=== PATIENT | male | born 1980 | race African-American/Black ===

== ENCOUNTER 2019-01-13 19:32 | Emergency (ER) | payer SELFPAY ==
[~2019-01-13] VITALS: Ht 180.3 cm; Wt 77.1 kg
[2019-01-13 19:35] VITALS: BP 148/88
[2019-01-13] MEDS ORDERED: IV NORMAL SALINE 1000ML BAG 1,000 ML IV ONE (20:00)
--- NOTE | 2019-01-13 20:15 | PHYS DOC ---
Past Medical History Past Medical History: No Pertinent History Past Surgical History Right thumb and index finger partial amputations Alcohol Use: None Drug Use: None Adult General Chief Complaint Chief Complaint: FATIGUE HPI HPI 38-year-old male presents with his brother with report of confusion and "fatigue". Patient reports she has not been sleeping well. Reports he feels like he is dehydrated because he has been donating plasma several times over the last few weeks. Denies trauma. Denies pain. Denies drug or alcohol abuse. Patient does not report history of mental illness. Review of Systems Review of Systems Constitutional: Denies fever or chills Eyes: Denies redness or eye pain HENT: Denies nasal congestion or sore throat Respiratory: Denies cough or shortness of breath Cardiovascular: Denies chest pain or palpitations GI: Denies abdominal pain, nausea, or vomiting; reports episode of diarrhea earlier this week : Denies dysuria or hematuria Musculoskeletal: Denies back pain or joint pain Integument: Denies rash or skin lesions Neurologic: Denies headache or sensory changes; reports intermittent confusion and "fatigue" Complete systems were reviewed and found to be within normal limits, except as documented in this note. Current Medications Current Medications Current Medications Medications (Trade) Dose Ordered Sig/Lila Start Time Stop Time Status Last Admin Dose Admin Sodium Chloride 1,000 ml @ 1,000 mls/hr 1X ONCE 01/13/19 20:00 01/13/19 20:59 UNV Physical Exam Physical Exam Constitutional: Well developed, well nourished, no acute distress, non-toxic appearance HENT: Normocephalic, atraumatic, oropharynx moist Eyes: PERRL, EOMI, conjunctiva normal, no discharge Neck: Normal range of motion, no tenderness, supple, no meningeal signs Cardiovascular: Heart rate normal, regular rhythm Lungs & Thorax: Bilateral breath sounds clear to auscultation, no wheezing Abdomen: Soft, no tenderness Skin: Warm, dry, no erythema, no rash Extremities: No tenderness, ROM intact, no edema, partial amputations to right thumb and index finger Neurologic: Alert and oriented X 3, normal motor function, normal sensory function, no focal deficits noted Psychologic: Affect flat, tangential thoughts Current Patient Data Vital Signs Vital Signs Date Time Temp Pulse Resp B/P (MAP) Pulse Ox O2 Delivery O2 Flow Rate FiO2 01/13/19 19:35 97.9 103 18 148/88 (108) 99 Room Air 97.9 EKG EKG [] Radiology/Procedures Radiology/Procedures [] Course & Med Decision Making Course & Med Decision Making Patient presents with history of intermittent confusion and "fatigue". Patient reports he thinks he is "dehydrated". No focal deficit noted. Patient appears to suffer from possible schizophrenia. Denies history. Denies drug or alcohol abuse. Labs ordered and IVF hydration ordered. CT head also ordered. Patient took a shower the bathroom attached to his room and reports he now feels better and wants to leave. Patient signed AMA form as he is refusing ordered evaluation and treatment. Discussed findings and plan with patient and family, who acknowledge understanding and agreement. Dragon Disclaimer Dragon Disclaimer This electronic medical record was generated, in whole or in part, using a voice recognition dictation system. Departure Departure Impression: Primary Impression: Intermittent confusion Disposition: 07 AGAINST MEDICAL ADVICE Condition: GUARDED Referrals: NO PCP (PCP) SHERYL HERNANDEZ DO Jan 13, 2019 20:15
== END 2019-01-13 20:23 | disposition left against medical advice (07) ==
LOC: ER 19:32
DX: R41.0 Disorientation, unspecified (principal); R53.83 Other fatigue; E86.0 Dehydration; Z89.011 Acquired absence of right thumb; Z89.021 Acquired absence of right finger(s)
CPT/HCPCS: 99281

== ENCOUNTER 2019-01-14 07:25 | Emergency (ER) | payer SELFPAY ==
[~2019-01-14] VITALS: Ht 180.3 cm; Wt 81.6 kg
[2019-01-14 07:30] VITALS: BP 138/82
--- NOTE | 2019-01-14 07:58 | PHYS DOC ---
Past Medical History Past Medical History: No Pertinent History Additional Past Medical Histor: PSYCH HISTORY Past Surgical History: Other Additional Past Surgical Histo: R HAND - MULT FINGER AMPUTATIONS Smoking: Cigar Alcohol Use: None Drug Use: None Adult General Chief Complaint Chief Complaint: LOWER BACK PAIN OR INJURY [facility] HPI Patient is a 38 year old male who presents with burning of back problem. Patient states" stuck me with with a contaminated needle with HIV yesterday in my back and I want to have a CT scan of my back to see if I have HIV. It was on camera and all over world saw it. I currently have investigation of for the accident and don't want to have any blood test and found to have CT of my back. I have 5% pain in my back." Patient is alert and oriented �3 and denies suicidal and homicidal ideation and hallucination. She was seen in this emergency room last night after he brought in by family members because of confusion but took a shower while he was in emergency room and as stated he feels good and didn't want to have CT or any lab tests and left AMA. Patient states he drove himself to the emergency room. Review of Systems Review of Systems Constitutional: Denies fever or chills [] Eyes: Denies change in visual acuity, redness, or eye pain [] HENT: Denies nasal congestion or sore throat [] Respiratory: Denies cough or shortness of breath [] Cardiovascular: No additional information not addressed in HPI [] GI: Denies abdominal pain, nausea, vomiting, bloody stools or diarrhea [] : Denies dysuria or hematuria [] Musculoskeletal: Reports back pain but denies joint pain [] Integument: Denies rash or skin lesions [] Neurologic: Denies headache, focal weakness or sensory changes [] Endocrine: Denies polyuria or polydipsia [] All other systems were reviewed and found to be within normal limits, except as documented in this note. Allergies Allergies Allergies Coded Allergies Type Severity Reaction Last Updated Verified Fish Containing Products Allergy Unknown 01/13/19 Yes nut - unspecified Allergy Unknown 01/13/19 Yes Physical Exam Physical Exam Constitutional: Well nourished, no distress, non-toxic appearance, poor hygiene. [] HENT: Normocephalic, atraumatic. Eyes: PERRLA, EOMI, conjunctiva normal, no discharge. [] Neck: Normal range of motion, no tenderness, supple, no stridor. [] Cardiovascular:Heart rate regular rhythm, no murmur [] Lungs & Thorax: Bilateral breath sounds clear to auscultation [] Back: No tenderness, no sign of injury, normal range of motion, no CVA tenderness. [] Extremities: No tenderness, no cyanosis, no clubbing, ROM intact, no edema. [] Neurologic: Alert and oriented X 3, no focal deficits noted. [] Psychologic: Affect anxious judgement abnormal, mood normal. [] Current Patient Data Vital Signs Vital Signs Date Time Temp Pulse Resp B/P (MAP) Pulse Ox O2 Delivery O2 Flow Rate FiO2 01/14/19 07:30 98.4 95 20 138/82 (100) 95 Room Air 98.4 EKG EKG [] Radiology/Procedures Radiology/Procedures [facility] [address] [place] [address] IMAGING REPORT Signed PATIENT: ZEINA SAUL CACCOUNT: [id number] : 1980 LOCATION: ER AGE: 38 SEX: M EXAM STATUS: REG ER ORD. PHYSICIAN: KIMBERLEE JOINER MD REASON: pain, pt states being stuck by dirty needle on lower back 01/13/19. PROCEDURE: LUMBAR SPINE 2-3V LUMBAR SPINE 2-3V 01/14/2019 7:48 AM Indication: Stuck by 30 needle in lower back COMPARISON: None available TECHNIQUE: 3 views of the lumbar spine are provided. Findings: There is minimal retrolisthesis of L3 on L4 and L4-L5. Vertebral body heights are maintained. No acute fracture is identified. Disc heights are maintained. No significant endplate degenerative changes are identified. There is no significant facet arthropathy. No significant osseous neuroforaminal stenosis or spinal canal stenosis. Nonobstructive bowel gas pattern. Visualized portions of the sacrum appear intact. No radiopaque foreign density is identified. Impression: No acute fracture. Minimal retrolisthesis of L3 on L4 and L4 and L5. There is no radiopaque foreign density identified. Electronically signed by: Sara Hdz MD (01/14/2019 8:32 AM) [facility] DICTATED and SIGNED BY: SARA HDZ MD DATE: 01/14/1932 Course & Med Decision Making Course & Med Decision Making Pertinent Imaging studies reviewed. (See chart for details) Evaluation of patient in ER showed 38-year-old male patient with poor hygiene and hallucination resented to ER requesting CT scan of his back regarding without injection his back and having HIV. Patient had unremarkable back exam. Patient was alert and oriented but had paranoia and hallucination. Patient denied suicidal and homicidal ideation. Patient was informed about normal x ray of his back and needs to follow-up with a psychiatric. I've spoken with the patient and/or caregivers. I've explained the patient's condition, diagnosis and treatment plan based on information available to me at this time. I've answered the patient's and/or caregivers questions and addressed any concerns. The patient and/or caregivers have a good understanding the patient's diagnosis, condition and treatment plan as can be expected at this point. Vital signs have been stabilized. The patient's condition is stable for discharge from the emergency department. The patient will pursue further outpatient evaluation with her primary care provider or other designated consulting physician as outlined in the discharge instructions. Patient and/or caregivers are agreeable to this plan of care and follow-up instructions have been explained in detail. The patient and/or caregivers have received these instructions in written format and expressed understanding of these discharge instructions. The patient and her caregivers are aware that if any significant change in condition or worsening of symptoms should prompt him to immediately return to this of the closest emergency department. If an emergent department is not readily available I would encourage him to call 911. Sandra Disclaimer Dragon Disclaimer This electronic medical record was generated, in whole or in part, using a voice recognition dictation system. Departure Departure Impression: Primary Impression: Anxiety about health Additional Impressions: Feared condition not demonstrated Hallucination Disposition: 01 HOME, SELF-CARE (at [id number]) Condition: STABLE Referrals: NO PCP (PCP) Patient Instructions: Hallucinations and Delusions Additional Instructions: Follow-up with your primary care physician in 2-3 days or follow-up with psychiatric physician Return to ER if not getting better Take [id number] Tylenol or ibuprofen as needed for back pain Problem Qualifiers KIMBERLEE JOINER MD Jan 14, 2019 07:57
--- NOTE | 2019-01-14 08:35 | RAD ---
LUMBAR SPINE 2-3V 01/14/2019 7:48 AM Indication: Stuck by 30 needle in lower back COMPARISON: None available TECHNIQUE: 3 views of the lumbar spine are provided. Findings: There is minimal retrolisthesis of L3 on L4 and L4-L5. Vertebral body heights are maintained. No acute fracture is identified. Disc heights are maintained. No significant endplate degenerative changes are identified. There is no significant facet arthropathy. No significant osseous neuroforaminal stenosis or spinal canal stenosis. Nonobstructive bowel gas pattern. Visualized portions of the sacrum appear intact. No radiopaque foreign density is identified. Impression: No acute fracture. Minimal retrolisthesis of L3 on L4 and L4 and L5. There is no radiopaque foreign density identified. Electronically signed by: Izzy Hdz MD (01/14/2019 8:32 AM) [facility]
== END 2019-01-14 08:57 | disposition home or self-care (01) ==
LOC: ER 07:25
DX: R44.3 Hallucinations, unspecified (principal); F41.9 Anxiety disorder, unspecified; F17.210 Nicotine dependence, cigarettes, uncomplicated; Z91.018 Allergy to other foods; Z91.013 Allergy to seafood
CPT/HCPCS: 72100; 99284

== ENCOUNTER 2019-06-04 18:23 | Emergency (ER) | payer SELFPAY ==
[~2019-06-04] VITALS: Ht 180.3 cm; Wt 77.2 kg
[2019-06-04 19:51] VITALS: BP 131/82
--- NOTE | 2019-06-04 20:04 | PHYS DOC ---
Past Medical History Past Medical History: Other Additional Past Medical Histor: PSYCH HISTORY (SHERYL MUNIZ APRN) Past Surgical History: Other Additional Past Surgical Histo: R HAND - MULT FINGER AMPUTATIONS (SHERYL MUNIZ APRN) Smoking Status: Current Every Day Smoker Alcohol Use: None Drug Use: None (SHERYL MUNIZ APRN) Attending Signature I have participated in the care of this patient and I have reviewed and agree with all pertinent clinical information above including history, exam, and recommendations. (ANI BAHENA MD) Adult General Chief Complaint Chief Complaint: BACK PAIN OR INJURY [facility] HPI Patient is a 39 year old male who presents with chief complaint of he thinks something is in his back. He states that he was walking along the road this afternoon and feels like something hit him in the back. When asked what hit him in the back he says he is not sure. He denies any additional symptoms. Complete ROS were reviewed and found to be within normal limits, except as documented in the HPI (SHERYL MUNIZ APRN) Allergies Allergies Allergies Coded Allergies Type Severity Reaction Last Updated Verified Fish Containing Products Allergy Unknown 01/13/19 Yes nut - unspecified Allergy Unknown 01/13/19 Yes (ANI BAHENA MD) Physical Exam Physical Exam Constitutional: Well developed, well nourished, no acute distress, non-toxic appearance. [] HENT: Normocephalic, atraumatic, bilateral external ears normal, oropharynx moist, no oral exudates, nose normal. [] Skin: Warm, dry, no erythema, no rash. [] Back: No tenderness, no bruising, or trauma noted, no entry or exit wounds. Extremities: No tenderness, no cyanosis, no clubbing, ROM intact, no edema. [] Neurologic: Alert and oriented X 3, normal motor function, normal sensory function, no focal deficits noted. [] Psychologic: Affect normal, judgement normal, mood normal. [] (SHERYL MUNIZ APRN) Current Patient Data Vital Signs Vital Signs Date Time Temp Pulse Resp B/P (MAP) Pulse Ox O2 Delivery O2 Flow Rate FiO2 06/04/19 19:51 98.0 81 16 131/82 (98) 97 Room Air 98.0 (ANI BAHENA MD) EKG EKG [] (SHERYL MUNIZ APRN) Radiology/Procedures Radiology/Procedures [] (SHERYL MUNIZ APRN) Course & Med Decision Making Course & Med Decision Making Pertinent Labs and Imaging studies reviewed. (See chart for details) The patient presents to the emergency department wanting an X-ray of his back. The patient has no tenderness or bruising. Discussed with patient that there is not indication for x-ray at this time. A medical screening exam was performed on this patient and the patient does not appear to be having a medical emergency. Her symptoms are not of sufficient severity and within reasonable medical probability it is unlikely the absence of immediate medical attention would result in placing the health of the individual (or, with respect to a woman, the health of the woman or her unborn child) in serious jeopardy, serious impairment to bodily functions, or serious dysfunction of any bodily organ or part. If , the patient is not in labor (SHERYL MUNIZ APRN) Dragon Disclaimer Dragon Disclaimer This electronic medical record was generated, in whole or in part, using a voice recognition dictation system. (SHERYL MUNIZ APRN) Departure Departure Impression: Primary Impression: Encounter for medical screening examination Disposition: 07 AGAINST MEDICAL ADVICE (eloped from ER after registration saw per hospital policy.) Condition: STABLE Referrals: NO PCP (PCP) SHERYL MUNIZ APRN Jun 04, 2019 20:04 ANI BAHENA MD Jun 04, 2019 20:06
== END 2019-06-04 20:48 | disposition left against medical advice (07) ==
LOC: ER 18:23
DX: F17.200 Nicotine dependence, unspecified, uncomplicated (principal); M54.89 Other dorsalgia; G89.11 Acute pain due to trauma; W22.8XXA Striking against or struck by other objects, initial encounter; Y93.01 Activity, walking, marching and hiking; Y92.89 Other specified places as the place of occurrence of the external cause; Y99.8 Other external cause status
CPT/HCPCS: 99281